=== PATIENT | female | born 1990 | race African-American/Black ===

== ENCOUNTER 2016-11-14 11:23 | Emergency (ER) | payer MEDICAID ==
[~2016-11-14] VITALS: Ht 157.5 cm; Wt 68.0 kg
[2016-11-14 11:31] VITALS: BP 121/83
== END 2016-11-14 15:10 | disposition home or self-care (01) ==
LOC: ER 15:01
DX: M54.5 Low back pain (principal); M25.562 Pain in left knee; F41.9 Anxiety disorder, unspecified
CPT/HCPCS: 29505; 73562; 99284